=== PATIENT | female | born 1955 | race Two or more races ===

== ENCOUNTER 2018-05-02 10:28 | Emergency (ER) | payer OTHER ==
[~2018-05-02] VITALS: Ht 165.1 cm; Wt 76.7 kg
[~2018-05-02 10:28] MED LIST: ACTIVELLA PO; MULTIVITAMIN1 CAP; TUSSIONEX PENNKI5 ML PO; XANAX XR0.5 MG PO
[2018-05-02] MEDS ORDERED: COZAAR50 MG (11:41)
== END 2018-05-02 19:12 | disposition home or self-care (01) ==
LOC: ER 10:28
DX: R10.32 Left lower quadrant pain (principal); K62.5 Hemorrhage of anus and rectum

== ENCOUNTER 2018-06-26 22:06 | Emergency (ER) | payer OTHER ==
[~2018-06-26] VITALS: Ht 162.6 cm; Wt 71.7 kg
[~2018-06-26 22:06] MED LIST changes: +COZAAR50 MG
[2018-06-27] MEDS ORDERED: LEVSIN/SL0.125 MG SL (03:05)
== END 2018-06-27 03:13 | disposition home or self-care (01) ==
LOC: ER 22:06
DX: K80.20 Calculus of gallbladder without cholecystitis without obstruction (principal)